=== PATIENT | male | born 1965 | race Caucasian/White ===

== ENCOUNTER → 2018-08-09 08:14 | Outpatient (CLI) | payer OTHER, SELFPAY ==
--- NOTE | 2018-08-09 08:15 | CA_ITS ---
PROCEDURE: 2-D M-mode and color Doppler study INDICATIONS FOR THE TEST: Chest pain+ COPD Heart Murmur+ Tobacco Smoking Palpitations Fatigue+ Syncope Edema Hypertension+Diabetes Mellitus Rheumatic Fever SOB ZAVALA Obesity Hyperlipidemia+ Family History HD Additional History PATIENT INFORMATION HEIGHT: 73 WEIGHT: 361 GENDER: Male B/P: 118/69 2-D/M-MODE INTERPRETATION: 2-D MEASUREMENTS OBSERVED VALUES IN CMS Right Ventricular Dimension (RVDd) 2.5 Interventricular Septum (Thickness)(IVsd) 1.0 Left Ventricular Internal Dimensions(LVIDd) 5.6 Left Ventricular Posterior Wall (Thickness)(LVPWd) 1.0 Aortic Root 3.0 Aortic Cusp Separation 2.2 Left Atrial Dimensions (LAD) 4.7 2D 1. Left atrium is mildly enlarged, left ventricle is normal size, mild concentric left ventricular hypertrophy, visually estimated ejection fraction 55% with no regional wall motion abnormality. 2. The right atrium and right ventricle are mildly enlarged with normal contractility. 3. The aortic valve is minimally thickened and calcified. 4. The mitral and tricuspid valve leaflets are minimally thickened identified. 5.The pulmonic valve is poorly present. 6. No significant pericardial effusion noted DOPPLER INTERROGATION: Doppler interrogation of the aortic, mitral and tricuspid valvular presence of mild mitral and tricuspid regurgitation, tricuspid regurgitation jet velocity is inadequate for calculation of the right ventricular systolic pressure, diastolic parameters are inconclusive CONCLUSION: 1. Mild biatrial enlargement, normal left ventricular size, mild visually estimated ejection fraction 55% with no regional wall motion abnormality, diastolic parameters are inconclusive. 2. Mildly enlarged with normal contractility. 3. Mild mitral and tricuspid regurgitation. 4. No significant pericardial effusion noted.
== END ==
PROVIDERS: PCP Family Medicine; Visit Provider Urology
DX: R07.9 Chest pain, unspecified (principal); E78.5 Hyperlipidemia, unspecified; I10 Essential (primary) hypertension; R01.1 Cardiac murmur, unspecified
CPT/HCPCS: 93306

== ENCOUNTER → 2020-02-22 12:29 | Outpatient (CLI) | payer OTHER, SELFPAY ==
--- NOTE | 2020-02-22 12:37 | XR_ITS ---
PROCEDURE: XR CHEST PORTABLE CLINICAL HISTORY: COVID SCREENING Cough COMPARISON: No exams were available for comparison FINDINGS: The cardiomediastinal silhouette and pulmonary vascularity are within normal limits. The lungs are clear without infiltrates, suspicious nodules, or pleural effusions. No acute bony abnormalities. IMPRESSION: No acute findings. Dictated by: Clifton Alexander MD 02/22/2020 13:52 Clifton Alexander MD in [place] 02/22/2020 13:52
[2020-02-22 14:04] LABS: Adenovirus,PCR Not Detected (NotDetected); Bordetella Pertussis Not Detected (NotDetected); Chlamydophila Pneumoniae, PCR Not Detected (NotDetected); Coronavirus 19, PCR Not Detected (NotDetected); Coronavirus 229E Not Detected (NotDetected); Coronavirus NL63 Not Detected (NotDetected); Coronavirus OC43 Not Detected (NotDetected); Coronovirus HKU1,PCR Not Detected (NotDetected); Human Metapneumovirus Not Detected (NotDetected); Influenza A, PCR Not Detected (NotDetected); Influenza AH1, 2009 Not Detected (NotDetected); Influenza AH1, PCR Not Detected (NotDetected); Influenza AH3,PCR Not Detected (NotDetected); Influenza B, PCR Not Detected (NotDetected); Mycoplasma Pneumoniae, PCR Not Detected (NotDetected); Parainfluenza 1, PCR Not Detected (NotDetected); Parainfluenza 2, PCR Not Detected (NotDetected); Parainfluenza 3, PCR Not Detected (NotDetected); Parainfluenza 4, PCR Not Detected (NotDetected); Respiratory Syncytial Virus Not Detected (NotDetected); Rhinovirus/Enterovirus Not Detected (NotDetected)
== END ==
PROVIDERS: PCP Family Medicine; Visit Provider Family Medicine
DX: Z03.818 Encounter for observation for suspected exposure to other biological agents ruled out (principal)
CPT/HCPCS: 71045; 87581; 87633; 87798; U0003

== ENCOUNTER → 2020-08-27 15:39 | Outpatient (CLI) | payer OTHER, SELFPAY ==
--- NOTE | 2020-08-27 15:48 | XR_ITS ---
PROCEDURE INFORMATION: Exam: XR Left Elbow Exam date and time: 08/27/2020 3:48 PM Age: 55 years old Clinical indication: Pain; Elbow; Left; Additional info: Pain post fall, attention to radial head TECHNIQUE: Imaging protocol: XR Left elbow. Views: 3 or more views. COMPARISON: No relevant prior studies available. FINDINGS: Bones/joints: There is no evidence of acute fracture. There is no evidence of joint malalignment or dislocation. Soft tissues: There are no soft tissue masses or fluid collections. IMPRESSION: 1. No evidence of acute fracture. 2. No evidence of acute dislocation.
--- NOTE | 2020-08-27 15:48 | XR_ITS ---
PROCEDURE INFORMATION: Exam: XR Left Knee Exam date and time: 08/27/2020 3:48 PM Age: 55 years old Clinical indication: Pain; Knee; Left; Additional info: Knee pain TECHNIQUE: Imaging protocol: XR Left knee. Views: 3 views. COMPARISON: No relevant prior studies available. FINDINGS: Bones/joints: There are mild degenerative changes of the knee joint, predominantly involving the medial joint compartment. There is no evidence of acute fracture. There is no evidence of joint malalignment or dislocation. Soft tissues: There are no soft tissue masses or fluid collections. IMPRESSION: 1. There are mild degenerative changes of the knee joint, predominantly involving the medial joint compartment. 2. No evidence of acute fracture. 3. No evidence of acute dislocation.
--- NOTE | 2020-08-27 15:52 | XR_ITS ---
PROCEDURE INFORMATION: Exam: XR Right Knee Exam date and time: 08/27/2020 3:52 PM Age: 55 years old Clinical indication: Pain; Knee; Right; Additional info: Knee pain TECHNIQUE: Imaging protocol: XR Right knee. Views: 3 views. COMPARISON: No relevant prior studies available. FINDINGS: Bones/joints: There is no evidence of acute fracture. There is no evidence of joint malalignment or dislocation. Soft tissues: There are no soft tissue masses or fluid collections. IMPRESSION: 1. No evidence of acute fracture. 2. No evidence of acute dislocation.
== END ==
PROVIDERS: PCP Family Medicine; Visit Provider Family Medicine
DX: M25.522 Pain in left elbow (principal); M25.562 Pain in left knee; M25.561 Pain in right knee
CPT/HCPCS: 73080; 73562

== ENCOUNTER → 2020-11-26 06:46 | Outpatient (CLI) | payer OTHER, SELFPAY ==
--- NOTE | 2020-11-26 | CA_ITS ---
APPROVED REPORT Exam: Pharmacologic Technologist: Aminata Donaldde Ht: 6 ft 0 in Wt: 353 lbs BSA: 2.71 m2 HR: 62 bpm BP: 133/84 mmHg Indications: Chest pain Stress Test Details Test: LEXISCAN HR Resting HR: 68 bpm Max Heart Rate (APMHR): 165 bpm Max HR Achieved: 93 bpm Target HR (85% APMHR): 140 bpm % of APMHR: 56 Recovery HR: 76 bpm BP Resting BP: 133.0/84.0 mmHg Max BP: 138.0/83.0 mmHg Recovery BP: 132.0/73.0 mmHg ECG Resting ECG: Normal sinus rhythm, low voltage QRS Clinical Exercise duration: 04:05 min Highest Stage Achieved: Exercise capacity: 1.0 METs Stress ECG Conclusion Symptoms: Shortness of air, chest pressure, malaise, headache. Arrhythmias/Ectopy: None ST-T Changes: No significant changes. Conclusion: Unremarkable Lexiscan stress. Myoview images reported separately. Electronically signed by : Pritesh Madison MD 11/26/2020 19:09:44
--- NOTE | 2020-11-26 06:47 | NM_ITS ---
APPROVED REPORT Exam: Nuclear Stress Test Indication: Chest pain, HTN, High cholesterol, Family history Patient Location: Outpatient Stress Tech: Aminata Cerda MD Tech:Lia Corral, ARRT, RT (R)(N) Ht: 6 ft 1 in Wt: 351 lbs HR: 62 bpm BP: 133/84 mmHg BSA: 2.73 m2 BMI: 46.3 History: Chest pain, HTN, High cholesterol, Family history Procedure: Patient received a 0.4 mg of intravenous Lexiscan, resting heart rate 62 bpm, resting blood pressure 133/84 mmHg, with Lexiscan maximum heart rate achived was 93 bpm which is Less than 85 % of the maximum predicted heart rate and blood pressure was 131/78 mmHg. Electrocardiogram Resting electrocardiogram shows sinus rhythm, with Lexiscan there is less than 1.[address] segment depression noted from the baseline EKG. The EKG portion of the Lexiscan is nondiagnostic. Cardiac Stress and Resting SPECT Images: Cardiac Stress and Resting SPECT images were obtained using technetium 99m Myoview 29.6 mCi stress and 10.17 mCi at rest. Gated SPECT for analysis of segmental wall motion and calculation of the ejection fraction also done. Prone images were also obtained. Cardiac stress and resting SPECT images show uniform myocardial activity without segmental perfusion abnormality, computer derived ejection fraction is 57% with no regional wall motion abnormality, right ventricle is normal size and contractility. Conclusion: 1. The EKG portion of the Lexiscan is nondiagnostic. 2. No scintigraphic evidence of reversible ischemia seen, computer derived ejection fraction is 57% with no regional wall motion abnormality, right ventricle is normal size and contractility. 3. Normal Lexiscan Myoview study. Electronically signed by : Prietsh Madison MD 11/26/2020 19:14:03
--- NOTE | 2020-11-26 09:42 | HMH.ITSHM ---
Current Home Medications as stated by this patient Reilly Parks JR or personal service representative. []VITAMIN D FENOFIBRATE SIMVASTATIN LOSARTAN BYSTOLIC TORSEMIDE CYCLOBEZAPR
== END ==
PROVIDERS: PCP Family Medicine; Visit Provider Family Medicine
DX: R07.9 Chest pain, unspecified (principal); R94.31 Abnormal electrocardiogram [ECG] [EKG]
CPT/HCPCS: 78452; 93017; A9502; J2785

== ENCOUNTER → 2021-12-04 11:56 | Outpatient (CLI) | payer OTHER, SELFPAY ==
--- NOTE | 2021-12-04 12:01 | XR_ITS ---
FINAL REPORT CLINICAL HISTORY: pain COMPARISON: August 27, 2020 FINDINGS: 2 views of the right knee were obtained. There is no acute fracture or dislocation. There is minimal osteophyte formation at the medial joint margin. The joint spaces are intact. There is no acute soft tissue abnormality. IMPRESSION: No acute process. Reviewed, Interpreted and Dictated by Gualberto Samuel MD Transcribed by Bhavik Fenton Authenticated and [facility]
--- NOTE | 2021-12-04 12:01 | XR_ITS ---
FINAL REPORT CLINICAL HISTORY: pain COMPARISON: August 27, 2020 FINDINGS: 2 views of the left knee were obtained. There is no acute fracture or dislocation. There is mild to moderate narrowing of the medial and lateral compartments. There is narrowing of the patellofemoral joint space. There are prominent osteophytes along the undersurface of the patella. There are well corticated os ossific densities posterior to the joint measuring up to 2.0 cm concerning for loose bodies. IMPRESSION: Mild to moderate osteoarthritis with questionable posterior loose bodies. Reviewed, Interpreted and Dictated by Gualberto Samuel MD Transcribed by Bhavik Fenton Authenticated and [facility]
== END ==
PROVIDERS: PCP Family Medicine; Visit Provider Family Medicine
DX: M25.562 Pain in left knee (principal); M25.561 Pain in right knee; S89.90XA Unspecified injury of unspecified lower leg, initial encounter
CPT/HCPCS: 73560

== ENCOUNTER → 2021-12-18 09:17 | Outpatient (CLI) | payer OTHER, SELFPAY ==
--- NOTE | 2021-12-18 09:18 | MR_ITS ---
FINAL REPORT CLINICAL HISTORY: knee pain right knee pain swelling in knee unable to put all of weight on knee cracks and pops FINDINGS: Multiplanar MR imaging of the right knee was performed without contrast. There is a partial tear at the junction of the posterior horn and posterior root of the medial meniscus. There is mild medial subluxation of the body of the medial meniscus. The lateral meniscus is intact. The anterior and posterior cruciate ligaments are intact. The medial collateral ligament and lateral ligamentous complex are intact. There are foci of patellar tendinitis. There is distal quadriceps tendinosis. There is no evidence of fracture. There is mild degenerative change. There is mild to moderate medial compartment chondromalacia. There is an 11 mm osteochondral lesion in the trochlea. A moderate to large joint effusion is seen. The musculature is intact. No soft tissue mass or cyst is identified. IMPRESSION: Partial tear of the medial meniscus with mild medial subluxation of the body. Mild degenerative change with mild to moderate medial compartment chondromalacia. Moderate to large joint effusion. 11 mm osteochondral lesion in the trochlea. Patellar tendinitis and distal quadriceps tendinosis. Reviewed, Interpreted and Dictated by Lino Duncan III, MD Transcribed by Bhavik Fenton Authenticated and [facility]
== END ==
PROVIDERS: PCP Family Medicine; Visit Provider Emergency Medicine
DX: M25.561 Pain in right knee (principal)
CPT/HCPCS: 73721

== ENCOUNTER → 2022-01-10 11:51 | Outpatient (CLI) | payer OTHER, SELFPAY ==
--- NOTE | 2022-01-10 12:32 | ECG_ITS ---
APPROVED REPORT Exam: Resting ECG HR:62 bpm ECG Measurements Heart Rate 62 AXES SC 186 P 47 QRSd 105 QRS -14 QT 395 T 53 QTc 400 Conclusion SINUS RHYTHM LOW QRS VOLTAGE IN PRECORDIAL LEADS [QRS DEFLECTION < 1.0 mV IN CHEST LEADS] PATTERN CONSISTENT WITH PULMONARY DISEASE ABNORMAL ECG UNCONFIRMED REPORT Electronically signed by : Lenny Hardin MD 01/11/2022 21:19:43
--- NOTE | 2022-01-10 12:52 | XR_ITS ---
PROCEDURE INFORMATION: Exam: XR Chest Exam date and time: 01/10/2022 12:52 PM Age: 56 years old Clinical indication: Pre-operative exam; Respiratory screening exam; Patient HX: Pre op for knee surgery-- technologist note: due to body habitus and size lateral is hard to see-- i increased technique but still not very clear TECHNIQUE: Imaging protocol: Radiologic exam of the chest. Views: 2 views. COMPARISON: CR XR CHEST PORTABLE 02/22/2020 12:53 PM FINDINGS: Lungs: Minimal linear subsegmental atelectasis in the left lingula. No focal consolidation. Pulmonary vessels do not appear congested. Pleural spaces: Unremarkable. No significant pleural effusion. No pneumothorax. Heart/Mediastinum: The cardiac silhouette is normal. Bones/joints: Ankylosing thoracic spondyloarthropathy with bridging syndesmophytes. IMPRESSION: 1. No acute cardiopulmonary findings. 2. Minimal subsegmental atelectasis in the left lingula; no consolidation. 3. Ankylosing thoracic spondyloarthropathy.
[2022-01-10 13:21] LABS: Basophils # 0.1 K/mm3 (0-0.2); Basophils % 0.9 % (0.1-2.0); Eosinophils # 0.2 K/mm3 (0.0-0.4); Hematocrit 45.7 % (42.0-52.0); Hemoglobin 14.8 g/dL (14.1-18.0); Lymphocytes # 1.8 K/mm3 (0.7-4.5); Lymphocytes % 19.6 % (10-50); Mean Corpuscular HGB Conc 32.4 g/dL (31.8-35.4); Mean Corpuscular Volume 95.6 fl (80-94); Mean Platelet Volume 8.9 fl (7.4-10.4); Monocytes # 0.6 K/mm3 (0.1-1.0); Neutrophils # 6.4 K/mm3 (1.8-7.8); Neutrophils % 70.4 % (37.0-80.0); Platelet Count 291 K/mm3 (142-424); Red Blood Count 4.78 M/mm3 (4.60-6.20); Red Cell Distribution Width 14.1 % (11.5-17.5); White Blood Count 9.1 K/mm3 (4.8-10.8)
[2022-01-10 13:49] LABS: Chloride 100 mmol/L (98-107); Potassium 4.2 mmoL/L (3.5-5.1); Sodium 144 mmol/L (136-145)
[2022-01-10 13:52] LABS: Alanine Aminotransferase 36 U/L (12-78); Albumin Level 4.4 g/dl (3.5-5.0); Alkaline Phosphatase 76 U/L (38-126); Anion Gap 16.2 mEq/L (5-15); Aspartate Amino Transferase 37 U/L (17-59); Blood Urea Nitrogen 26 mg/dl (9-20); Carbon Dioxide 32 mmol/L (22.0-30.0); Estimated Glomerular Filt Rate 45 ml/min (>60); GFR (African American) 54 ML/MIN (>60); Globulin 2.2 g/dL (1.3-3.2); Total Protein,Serum 6.6 g/dl (6.3-8.2)
[2022-01-10 13:53] LABS: Calcium 9.3 mg/dl (8.4-10.2); Glucose 59 mg/dl (74-100)
[2022-01-10 13:57] LABS: Bilirubin,Total < 0.1 mg/dl (0.2-1.3)
== END ==
PROVIDERS: PCP Family Medicine; Visit Provider Orthopaedic Surgery
DX: Z01.812 Encounter for preprocedural laboratory examination (principal); S83.241A Other tear of medial meniscus, current injury, right knee, initial encounter
CPT/HCPCS: 36415; 71046; 80053; 85025; 93005

== ENCOUNTER 2022-01-16 11:47 | Day surgery (SDC) | payer OTHER, SELFPAY ==
[2022-01-13 16:46] VITALS: BMI 43.5
[2022-01-16] VITALS (9 sets, daily range): BP systolic 106–146; BP diastolic 59–99; PULSE 70–78; RESP 16–26; TEMP 36.3–36.6; O2SAT 93–99
--- NOTE | 2022-01-16 12:21 | SUR.PREOP ---
Pt progree number given to , Gloria, verbalized understanding of system.
--- NOTE | 2022-01-16 13:11 | P.PN_ITS ---
[facility] Medical History History of hyperlipidemia History of hypertension Surgical History History of cholecystectomy History of colonoscopy History of vasectomy Family History Other Family history of diabetes mellitus type II Family history of myocardial infarction Social History Smoking Status: Never smoker alcohol intake: current substance use type: denies use current occupational status: employed Travel in the last 8 weeks: None [facility] Anesthesia Checklist Patient Identification Patient Identification: Arm Band Structural Data Admitted From: Home Planned Operative Procedure/s: Right Knee Arthroscopy, Partial Medial Meniscectomy Consent for Planned Operative Procedure(s) Verified: Yes Verified Documents: Surgical Consent and History and Physical NPO Status Verified Time NPO: 00:00 Additional verifications Anesthesia Reactions: Yes (N/V) Hx Blood Transfusions: No Blood Transfusion Reaction: No Airway Assessment C-Spine Mobility Assessed: Yes TMJ Mobility Assessed: Yes Dentition: Good Dentition Neurological Assessment Level of Consciousness: Awake and Alert Anesthesia Plan Anesthesia Risk discussed: Yes Anesthesia Plan: Verified ASA Class: III Anesthesia Type: General
--- NOTE | 2022-01-16 14:54 | P.OP_ITS ---
Date of procedure: 01/16/22 Pre-op Diagnosis:: Right knee medial meniscus tear Post-op Diagnosis:: Right knee medial meniscus tear Procedure performed:: Right knee arthroscopy with partial medial meniscectomy Surgeon:: Josse Arvizu MD Anesthesia: GETA and local Estimated blood loss (mL): 5 Clinical Note:: Christian is a very pleasant 56-year-old male who has been struggling with right knee pain over the past few months. MRI revealed a horizontal cleavage tear posterior horn medial meniscus with radial component and mild degenerative changes. He had failed conservative treatment measures. We discussed all the risks, benefits and alternatives to right knee arthroscopy. He agreed to p roceed and surgical consent form was signed. Operative findings:: Right knee complex tear posterior horn of the medial meniscus with horizontal cleavage and radial components. Mild chondromalacia of the medial femoral condyle. Mild to moderate chondromalacia of the trochlea. Operative note:: The patient was seen in the preoperative holding area. Right knee was marked to confirm the correct operative site. He received Ancef 2 g IV prophylactic antibiotics within 1 hour of incision time. He was seen by anesthesia. He was brought back to the OR. General anesthesia was induced without difficulty. Right lower extremity was prepped and draped in the usual sterile fashion. Timeout was performed to confirm right knee arthroscopy on patient Christian Parks. I made an anterior lateral portal incision with an 11 blade scalpel. Arthroscope was introduced into the knee joint. Diagnostic arthroscopy commenced. I made an anteromedial portal localizing this with a spinal needle and this incision was made with an 11 blade and dilated with a trocar. Evaluation of the medial compartment revealed a complex tear with horizontal cleavage and radial component posterior horn the medial meniscus. This was treated with a partial medial meniscectomy using a combination of a 4.0 mm shaver and a straight biter to resect the unstable inferior flap and radial flap of this medial meniscus tear. We resected the inner half to two thirds of the meniscus at the apex of the tear. We made a smooth transition to intact posterior horn and body of the medial meniscus. He had some diffuse grade II- III chondromalacia of the medial femoral condyle that was debrided with a shaver back to smooth stable borders. Cruciate ligaments were seen to be intact. He was placed in the [id number] position. He had some grade II-III chondromalacia central aspect of the lateral tibial plateau. There are some fraying of the inner edge of the lateral meniscus that was cleaned up with a shaver but there was no significant lateral meniscus tear. Evaluation of the patellofemoral compartment revealed grade II-III chondromalacia central aspect of the trochlea that was cleaned up with the shaver back to a smooth stable border. There was no full-thickness cartilage loss. At this time arthroscopy instruments were removed from the joint. Arthroscopy fluid was suctioned and drained from the joint. Portals were closed with 4 Monocryl subcuticular stitches. I injected 20 cc of half percent Naropin into the knee joint from the superolateral approach for local anesthetic. A sterile dressing was applied with Steri-Strips, 4 x 4's, ABD, soft roll and an Erick bandage. Anesthesia was reversed without difficulty and he was transferred to recovery in stable condition. All sponge and needle counts correct x2. Tourniquet time (min): 0 Condition: stable Disposition: PACU Specimens:: None Complications:: None
--- NOTE | 2022-01-16 15:14 | EXP.ANES.I ---
[facility] Anesthesia Record Part I Anesthesia Record I Intake, IV Amount: 1,000 Estimated blood loss (mL): 3 Urine output (mL): 0 Blood Products used (#): none Blood Pressure: 127/59 SaO2: 95 Pulse Rate: 78 Respiratory Rate: 26 Temperature: 97.3 F Patient is:: Drowsy and Stable Stable to PACU at:: 15:08
--- NOTE | 2022-01-19 09:58 | EXP.ANES.II ---
[facility] Anesthesia Record Part II Anesthesia Record Part II Discharge Time: 15:38 (01/16/22) Destination: Surgical Day Care (OP Surgery) PACU nurse assessment reviewed?: Yes Patient Condition:: Good Anesthesia Complications:: None Swallowing reflex intact?: Yes Cyanosis?: No Blood Pressure: 136/88 Pulse Rate: 74 Temperature: 97.5 F Mental Status: Alert & Oriented Pain level:: 0 Nausea and/or vomitting:: None Intake, IV Amount: 0
[2022-01-19 09:59] VITALS: BP 136/88; PULSE 74; TEMP 36.4
== END 2022-01-16 16:10 | disposition home or self-care (01) ==
PROVIDERS: PCP Family Medicine; Visit Provider Orthopaedic Surgery
PROC: (CPT 29870; principal; 2022-01-16 13:30)
DX: S83.231A Complex tear of medial meniscus, current injury, right knee, initial encounter (principal); M94.261 Chondromalacia, right knee; I10 Essential (primary) hypertension; Z79.899 Other long term (current) drug therapy
CPT/HCPCS: 29881; 96374; J2405

== ENCOUNTER 2024-08-14 10:05 | Outpatient (CLI) | payer OTHER, SELFPAY ==
[2024-08-14 18:32] LABS: Basophils # 0.1 K/mm3 (0-0.2); Basophils % 0.4 % (0.1-2.0); Eosinophils # 0.2 Kmm3 (0.0-0.4); Hematocrit 47.9 % (42.0-52.0); Hemoglobin 15.6 g/dL (14.1-18.0); Immature Granulocytes # 0.16 10^3uL; Immature Granulocytes % 1.4 %; Lymphocytes % 18.1 % (10-50); Mean Corpuscular HGB Conc 32.6 g/dL (31.8-35.4); Mean Corpuscular Hemoglobin 30.2 pg (27.0-31.2); Mean Corpuscular Volume 92.6 fl (80-94); Mean Platelet Volume 10.6 fl (7.4-10.4); Monocytes # 0.8 K/mm3 (0.1-1.0); Monocytes % 7.3 % (1.7-9.3); Neutrophils # 7.9 K/mm3 (1.8-7.8); Neutrophils % 70.8 % (37.0-80.0); Nucleated Red Blood Cells # 0 10^3/uL; Nucleated Red Blood Cells % 0 %; Platelet Count 295 K/mm3 (142-424); Red Blood Count 5.17 M/mm3 (4.60-6.20); Red Cell Distribution Width-SD 44.1 fL; White Blood Count 11.2 K/mm3 (4.8-10.8)
[2024-08-14 19:05] LABS: Alanine Aminotransferase 30 U/L (12-78); Albumin Level 4.2 g/dl (3.5-5.0); Albumin/Globulin Ratio 1.7 (1.1-1.8); Alkaline Phosphatase 78 U/L (38-126); Anion Gap 12.3 mEq/L (5-15); Aspartate Amino Transferase 34 U/L (17-59); Bilirubin,Total 0.5 mg/dl (0.2-1.3); Blood Urea Nitrogen 28 mg/dl (9-20); Calcium 9.4 mg/dl (8.4-10.2); Carbon Dioxide 29 mmol/L (22.0-30.0); Chloride 102 mmol/L (98-107); Cholesterol 169 mg/dl (140-200); Estimated Glomerular Filt Rate 41 ml/min (>60); GFR (African American) 50 ML/MIN (>60); Globulin 2.5 g/dL (1.3-3.2); Glucose 76 mg/dl (74-100); HDL Cholesterol 34 mg/dl (40-60); Potassium 4.3 mmoL/L (3.5-5.1); Sodium 139 mmol/L (136-145); Total Protein,Serum 6.7 g/dl (6.3-8.2); Triglycerides 198 mg/dl (30-150); VLDL Cholesterol 40 mg/dL (0-40)
[2024-08-14 19:11] LABS: Hemoglobin A1C 5.4 % (4.0-6.0)
[2024-08-14 19:16] LABS: Direct LDL Cholesterol 95.03 mg/dL (100-129)
[2024-08-14 19:37] LABS: HIV Combo NEGATIVE (Negative)
[2024-08-14 19:40] LABS: Prostate Specific Ag Screen 0.7 ng/ml (0.0-4.0); Thyroid Stimulating Hormone 2.31 uIU/mL (0.465-4.68)
[2024-08-14 19:44] LABS: Hepatitis C Ab Qual. W/ RFX NEGATIVE (Negative)
[2024-08-16 09:13] LABS: Hepatitis B Surface Antigen Negative (Negative)
== END 2024-08-14 23:59 | disposition home or self-care (01) ==
LOC: LAB.DROPOF 08-15 13:44
PROVIDERS: PCP Family Medicine; Visit Provider Family Medicine
DX: I10 Essential (primary) hypertension (principal)
CPT/HCPCS: 80053; 80061; 83036; 84443; 85025; 86803; 87340; 87389; G0103